=== PATIENT | male | born 1930 | race Caucasian/White ===

== ENCOUNTER 2016-06-23 08:36 | Observation (INO) | payer MEDICARE, BC ==
[~2016-06-23] VITALS: Ht 172.7 cm; Wt 68.0 kg
--- NOTE | ~2016-06-23 | ECH ---
Transthoracic Echocardiography Report (TTE) Demographics Patient Name JAYDEN CASAS Date of Study 06/24/2016 Patient Number [id number] Visit Number [id number] Date of 1930 Room Number 523 Accession Number [id number] Gender Male Age 85 year(s) Referring Leanna Overton MD Chain Machine Operator Helen Moe [facility] Physician Physician Interpreting King Donavon Olson MD Wound/Ostomy Clinical Nurse Specialist Physician Supervising Ordering Physician Leanna Overton MD, MD/P Nurse Stress International Trade Manager Conclusions Summary Technically adequate exam. The estimated left ventricular ejection fraction is 60-65%. Mild septal left ventricular hypertrophy. Diastolic assessment reveals Grade II pseudonormal diastolic function . Mild mitral regurgitation by color Doppler. There is trivial aortic regurgitation by color Doppler. Mild tricuspid regurgitation by color Doppler. There is mild pulmonary hypertension. The pulmonary pressure (RVSP) is 39 mmHg. Mild pulmonic valve regurgitation by color Doppler. Procedure Type of Study TTE procedure:Echo Complete SF. Procedure Date Date: 06/24/2016 Start: 03:22 PM Technical Quality: Adequate visualization Indications:Syncope. Appropriate Use Criteria: 9 Height: 68 inches Weight: 149 pounds BSA: 1.8 m Rhythm: Within normal limits HR: 78 bpm BP: 128/49 mmHg M-Mode/2D Measurements LV Diastolic Dimension: 4.5 cm LV Systolic Dimension: 2.88 cm LV Septum Diastolic: 1.29 cm LV PW Diastolic: 0.96 cm AO Root Dimension: 3.1 cm Cardiac Output: 3.75 l/min LA Dimension: 3.32 cm Cardiac Index: 2.08 l/min*m LA volume index: 30 ml/m LVOT: 1.83 cm RV Base: 2.4 cm LVOT VTI: 18.31 cm RV Mid: 2 cm LV Stroke volume: 48.13 ml TAPSE: 2.2 cm LV Stroke volume index: 26.74 ml/m Doppler Measurements AV Mean Gradient: 4.41 mmHg MV Peak E-Wave: 0.98 m/s LVOT Peak Velocity: 0.92 m/s MV Peak A-Wave: 0.8 m/s AV Area (Continuity):1.71 cm MV P1/2t: 49.9 msec TR Velocity:2.91 m/s TR Gradient:33.85 mmHg MV Deceleration Time: 178.2 msec Estimated RAP:5 mmHg MV Area (PHT): 4.41 cm Estimated RVSP: 39 mmHg Estimated PASP: 38.85 mmHg RA Area: 13.57 cm Findings Left Ventricle The left ventricle is normal in size . Mild septal left ventricular hypertrophy. Diastolic assessment reveals Grade II pseudonormal diastolic function . Right Ventricle Normal right ventricle structure and function. Left Atrium Normal left atrial size. Right Atrium Normal right atrial size. Mitral Valve Normal mitral valve structure and function. Mild mitral regurgitation by color Doppler. Aortic Valve The aortic valve is mildly sclerotic. There is trivial aortic regurgitation by color Doppler. Tricuspid Valve Normal tricuspid valve structure and function. Mild tricuspid regurgitation by color Doppler. There is mild pulmonary hypertension. The pulmonary pressure (RVSP) is 39 mmHg. Pulmonic Valve The pulmonic valve is not well visualized. Mild pulmonic valve regurgitation by color Doppler. Pericardial Effusion No evidence of pericardial effusion. Miscellaneous Visualized portions of the aortic root and ascending aorta appear normal in size. Pleural Effusion No evidence of pleural effusion. Signature
--- NOTE | 2016-06-24 10:41 | ER ---
ADMIT: 06/23/2016 RM/LOC: ER [facility] MR#: [id number] [address] [facility] [address] [place] [id number] JAYDEN CASAS [address] [place] [address] Emergency Room Report SEX: M AGE: 85 : 1930 DATE: 06/23/2016 BRIEF ADDENDUM: Please see my T-sheet for complete review of systems, past medical history, and physical exam. CHIEF COMPLAINT: Syncope and weakness. HISTORY OF PRESENT ILLNESS: This is a pleasant 85-year-old white male, who presents to the ER after falling last night. The patient states he let the dog out, went to lay down in bed when he fell. He awoke an unknown amount of time later and was unable to get off the ground complaining of significant right-sided pain. He thinks he bumped himself something going down. States he felt kind of lightheaded throughout the day. He complains of no pain at present, other than weakness. He does have a chronic cough. Denies any chest pain, palpitations, nausea, vomiting, or abdominal pain. PAST MEDICAL HISTORY: Diabetes, myelodysplastic syndrome. Family member reports a possible stroke in the past, however, I cannot confirm this with Dr. Carranza or medical records today. He is a past smoker. COURSE IN EMERGENCY ROOM: Patient seen and examined. He is alert in no acute distress. He is oriented to person, place, and time. Eyes are equal and reactive to light. Neck is soft and supple. No respiratory distress. Heart is regular rate and rhythm. Did get an EKG on him which shows a sinus rhythm, rate of 67, no ST-T changes. He does have a white count of 3.8, hemoglobin 8.5, hematocrit 24.5, and platelets 225. Sodium 139, potassium 4.2, CO2 of 27, BUN 20, creatinine 1.1, bilirubin 2.8. Liver enzymes normal. Urine shows 1+ protein, 300 glucose, 1+ ketones. Did start him on some normal saline at 150 mL per hour, did phone Dr. Carranza, stationary engineer apprentice for Dr. Ram today who reviewed his records, does have a known myelodysplastic syndrome. Last draw was in January, had a hemoglobin of 9.0. Given his recent events, did think it was best to admit him obs tonight and keep an eye on him, watch his counts. IMPRESSION: 1. Syncopal episode. 2. Myelodysplastic syndrome. 3. Type 2 diabetes. DISPOSITION: The patient will be admitted observation in the care of Dr. Carranza for Dr. Ram. Discharged to the floor in stable condition. SABRA Friend / Real Mckenzie MD / modl JOB #: [id number] CC: ADMIT: 06/23/2016 RM/LOC: ER [facility] MR#: [id number] [address] [place] [id number] JAYDEN CASAS [address] [place] [address] Emergency Room Report SEX: M AGE: 85 : 1930 Real Mckenzie MD, Attending Physician
--- NOTE | 2016-06-25 07:07 | HP ---
ADMIT: 06/23/2016 RM/LOC: 523 [facility] MR#: [id number] ACC#: [id number] [address] [facility] [address] [place] [phone] ROLY CASAS [address] [place], [place] [id number] History and Physical SEX: M AGE: 85 : 1930 DATE OF SERVICE: CHIEF COMPLAINT: Apparent syncopal spell with prolonged period on the ground. HISTORY OF PRESENT ILLNESS: Roly is an 85-year-old gentleman, who presented to the emergency room after a fall in his home. He has some memory issues, but apparently in the process of trying to get into the bed he lost his balance and fell. He was home by himself. He lives alone and he was apparently unconscious for unspecified period of time. He may have hit his head, he is not certain, but he was too impaired after he woke up to push his lifeline, however, this morning, he did so. So there was a period of being awake, but impaired. He denied any chest pain. Denies any headache or neck ache. Most of his pain is on the right side, mostly about the right shoulder. Possibly lightheaded during the day. In the emergency room, he had telemetry and EKG which was unremarkable. His vital signs were stable. His lab work showed a hemoglobin of 8.5 (patient has mild dysplastic syndrome). White count was 3800. He denies any acute concerns for myself. Also of note, he is prone to fall. He had a fall earlier this spring and has some gait issues. Dr. Ram, his primary sent him to a neurologist, who felt he did not have Parkinson's. possibility of enlarged ventricles or possibly normal-pressure hydrocephalus, but the neurologist leaned against it recommending repeat CT scan of the head in about six months, and otherwise just observation. Roly at that time was really not interested in any intervention at any rate. I do not see a CT report in the electronic record system at this time. He has not had any falls since. CHRONIC ILLNESSES: He has chronic mild memory impairment but lives independently. He prediabetic, myelodysplastic syndrome for which he has seen an oncologist in the past in [place], but since he has moved here, he has declined seeing Hematology/Oncology. Also, history of BPH, on Flomax. SURGICAL HISTORY: He has had cataracts. He has had bone marrow biopsy. SOCIAL HISTORY: He lives alone. He quit smoking many years ago. Alcohol use is occasional. He is accompanied by his daughter, who attends to his needs. ALLERGIES: NONE. MEDICATIONS: 1. Metformin. 2. Flomax. FAMILY HISTORY: No cardiac history. REVIEW OF SYSTEMS: CONSTITUTIONAL: Denies chills or fevers. EYE, EAR, NOSE, and THROAT: No acute complaints. RESPIRATORY: Slight cough, but chest x-ray is clear. ADMIT: 06/23/2016 RM/LOC: 523 [facility] MR#: [id number] [facility] [address] [phone] ROLY CASAS [address] [place] [address] History and Physical SEX: M AGE: 85 : 1930 CARDIOVASCULAR: No chest pressure. MUSCLE, BONE, AND JOINT: A little shoulder discomfort on the right since his fall. SKIN: No acute issues. GI: Negative. : Has some prostate issues, unchanged. No burning with urination. Had a UTI earlier this year which was treated. HEMATOLOGIC: No history of bleeding or blood clots. Does have a history of myelodysplastic syndrome, untreated. NEURO: No focal symptoms at this time. Chronic global memory issues which are unchanged. PSYCH: Negative. PHYSICAL EXAMINATION: GENERAL: He is alert. Oriented to person and place. I did not ask if he knew the day of the week. VITAL SIGNS: 105/89, 89, 15, 97.1. Sinus rhythm. He is not hypoxic. ENT: He wears hearing aids. He is hard of hearing. No nasal discharge. Throat is clear. EYES: He wears glasses. Pupils are equal and reactive. Sclerae are clear. NECK: No masses. No bruits. LUNGS: Clear throughout. Chest x-ray was clear. HEART: Regular rhythm. No murmurs. ABDOMEN: Soft. No masses or tenderness. GENITALIA: Unremarkable to cursory exam. RECTAL: Exam not performed. EXTREMITIES: Upper extremities; grossly normal. Minimal tenderness of the right upper back, can move his shoulder on the right freely, and the elbow on the right freely. Lower extremities no acute injuries noted. Moves hips, knees, and ankles freely. No edema in his legs. PSYCH: He is calm. NEURO: No focal changes. Chronic memory issues as discussed. IMPRESSION: 1. Syncope. Question is whether it is primary syncope or he fell hit his head and then passed out. Really no way of knowing at this time. He is not having any headache though. He did have several hours of impairment ADMIT: 06/23/2016 RM/LOC: 523 [facility] MR#: [id number] [address] [place] [id number] ROLY CASAS [address] [place] [address] History and Physical SEX: M AGE: 85 : 1930 after the fall, so he was on the ground. 2. Anemia in a patient with history of myelodysplastic syndrome and no history to suggest any acute blood loss. 3. The patient is a prediabetic by history. 4. Chronic memory impairment. 5. Chronic gait difficulty. DISCUSSION: He was placed OPO. We will obviously keep him on telemetry, trend his blood counts, hydrate him, also check CK since he was on the ground for a long period of time and check some other studies to screen for the causes of anemia such as iron and B12, stools for Hemoccult test etc. Adjust treatment based on clinical course. Cruz Carranza MD/ krish JOB #: [id number] CC: Tian Ram, Attending Physician Tian Ram, Family Physician
[2016-06-26] MEDS ORDERED: HYTRIN2 MG PO (18:27)
[2016-06-26] MEDS ORDERED: TYLENOL DPS325 MG PO (18:27)
[2016-06-26] MEDS ORDERED: GLUCOPHAGE-DPS500 MG PO (18:27)
[2016-06-26] MEDS ORDERED: ASPIR 8181 MG PO (18:28)
--- NOTE | 2016-09-02 10:20 | DS ---
ADMIT: 06/23/2016 RM/LOC: 523 [facility] MR#: [id number] [facility]#: [id number] [address] [facility] [address] [place], [place] [phone] JAYDEN CASAS [address] [place], [place] [id number] General Discharge Summary SEX: M AGE: 85 : 1930 ADMISSION DATE: 06/23/2016 DISCHARGE DATE: 06/25/2016 FINAL DIAGNOSIS: 1. Syncope. 2. Mild dysplastic syndrome. 3. Age-related cognitive decline. 4. Gait instability. 5. Diabetes mellitus type 2. 6. Bilateral carotid artery stenosis. REASON FOR ADMISSION: This is an 85-year-old white male, who lives alone, had a syncopal episode, laid on the ground all night. His son checked on him, found him, and therefore he was hospitalized for further workup and stabilization. HOSPITAL COURSE: Was admitted on 06/23/2016, monitored on telemetry, placed in observation status. We did have Physical Therapy consult, gently rehydrated. We checked a CT scan of his head, which did not show any obvious reason for his syncope. His carotid Dopplers were unremarkable as was his echocardiogram. PT and OT followed. We did check cardiac enzymes, which were negative. On 06/25/2016, he had an okay night. He denied feeling weak or dizzy. He was up. He was moving around better. It was noted that he had bilateral carotid artery stenosis. We did start him on an aspirin 81 mg daily, got him an appointment with a vascular surgeon, and he was felt stable for discharge. He felt he was safe to go home. DISCHARGE INSTRUCTIONS: 1. Aspirin 81 mg daily. 2. Glucophage 5 mg daily. 3. Hytrin 2 mg at bedtime. 4. Tylenol 325 mg 2 tabs q.4 hours p.r.n. Follow up with Dr. Ram in 1 week, appointment with vascular surgeon at [facility]. Follow up sooner if needed. Tian Ram MD/ ronnie JOB #: [id number] CC: Tian Ram MD, Attending Physician Tian Ram MD, Family Physician
== END 2016-06-25 17:24 | disposition home or self-care (01) ==
LOC: ER 08:36 → 5MS 10:35
PROVIDERS: ADMIT Family Medicine
DX: R55 Syncope and collapse (principal); D64.9 Anemia, unspecified; D46.9 Myelodysplastic syndrome, unspecified; I65.23 Occlusion and stenosis of bilateral carotid arteries; E11.9 Type 2 diabetes mellitus without complications; R26.9 Unspecified abnormalities of gait and mobility; Z87.891 Personal history of nicotine dependence; Z79.899 Other long term (current) drug therapy